=== PATIENT | male | born 2000 | race African-American/Black ===

== ENCOUNTER 2019-07-27 21:47 | Emergency (ER) | payer SELFPAY ==
[~2019-07-27] VITALS: Ht 185.4 cm; Wt 84.8 kg
[2019-07-27] MEDS ORDERED: predniSONE 20 MG TABLET PO ONE (22:15)
[2019-07-27] MEDS ORDERED: ALBUTEROL SULFATE 8 GM HFA.AER.AD IH PRN (22:15)
[2019-07-27] MEDS ORDERED: predniSONE 20 MG TABLET ONE (22:16)
--- NOTE | 2019-07-27 22:55 | NUR ---
Patient discharged to home in stable conditon. Written and verbal after care instructions given. Patient verbalizes understanding of instructions. Pt walked out of ER in steady gait, not in any acute distress. No episodes of cough or shortness of breath witnessed.
[2019-07-27 23:02] VITALS: BP 136/75
== END 2019-07-27 23:05 | disposition home or self-care (01) ==
LOC: ER 21:47
DX: J20.9 Acute bronchitis, unspecified (principal); J02.8 Acute pharyngitis due to other specified organisms; B97.89 Other viral agents as the cause of diseases classified elsewhere
CPT/HCPCS: 71045; 99283; J7512; A4663; J3535